=== PATIENT | female | born 1970 | race Two or more races ===

== ENCOUNTER 2018-11-19 08:34 | Emergency (ER) | payer BC ==
[~2018-11-19] VITALS: Ht 154.9 cm; Wt 70.0 kg
[2018-11-19] MEDS ORDERED: IBUPROFEN 600MG TABLET PO STA (10:41)
[2018-11-19 10:56] LABS: BASOPHILS % 0.8 % (0.0-2.0); EOSINOPHILS % 0.9 % (0.0-5.0); HEMATOCRIT. 39.1 % (36.0-48.0); HEMOGLOBIN. 13.5 g/dL (12.0-16.0); LYMPHOCYTES % 29.3 % (20.0-50.0); MEAN CORPUSCULAR VOLUME 87.2 fL (81.0-99.0); MEAN PLATELET VOLUME 8.9 fl (7.4-10.4); PLATELET 226 x1000/uL (130-400); RED BLOOD CELL COUNT 4.49 mill/uL (4.2-5.4); RED CELL DISTRIBUTION WIDTH 13.3 % (11.6-14.6)
[2018-11-19 11:03] LABS: CHLORIDE 108 mEq/L (98-107)
[2018-11-19 12:00] VITALS: BP 128/67
== END 2018-11-19 12:37 | disposition home or self-care (01) ==
LOC: ER 08:34
DX: R07.89 Other chest pain (principal); Z98.890 Other specified postprocedural states
CPT/HCPCS: 36415; 71045; 81025; 84484; 93005; 99284